=== PATIENT | female | born 1970 | race Caucasian/White ===

== ENCOUNTER 2017-06-23 15:10 | Emergency (ER) | payer OTHER ==
[~2017-06-23] VITALS: Ht 157.5 cm; Wt 69.9 kg
[~2017-06-23 15:10] MED LIST: NABUMETONE500 MG PO; PERCOCET 5/3251 TAB PO; SYNTHROID PO
[2017-06-23] MEDS ORDERED: SYNTHROID50 MCG PO (15:44)
== END 2017-06-24 01:09 | disposition home or self-care (01) ==
LOC: ER 15:13
DX: R09.81 Nasal congestion (principal); J40 Bronchitis, not specified as acute or chronic